=== PATIENT | female | born 1995 | race Hispanic/Latino ===

== ENCOUNTER 2018-09-22 00:27 | Emergency (ER) | payer SELFPAY ==
[2018-09-22 02:40] LABS: Absolute Lymphocytes (CBC) 2.4 K/uL (0.7-4.9); Absolute Monocytes 0.6 K/uL (0.1-1.3); Basophils % 0.7 % (0-1.3); Eosinophils % 2.6 % (0-4.4); Hematocrit 40.1 % (36.0-45.0); Lymphocytes % 33.2 % (15.3-44.8); MCH 30.8 pg (27.0-35.0); MCV 90.1 fL (80-100); MPV 8.3 fL (7.6-11.3); Monocytes % 8.9 % (3.3-12.3); RBC Red Blood Cell Count 4.44 M/uL (3.86-4.86)
[2018-09-22 02:52] LABS: BUN Blood Urea Nitrogen 9 mg/dL (7-18); Bicarbonate 26 mmol/L (21-32); Glucose Level 86 mg/dL (74-106); HCG, Quantitative 463 mIU/mL (1-3); Potassium 3.5 mmol/L (3.5-5.1); Sodium Level 139 mmol/L (136-145)
--- NOTE | 2018-09-22 05:00 | ER ---
Nurse's Notes [facility] Name: Maria Luisa Quinn Age: 23 yrs Sex: Female : 1995 Arrival Date: 09/22/2018 Time: 00:31 Bed 5 Private MD: Diagnosis: Threatened Presentation: 09/22 01:02 Presenting complaint: Patient states: "I took a test August,, jd3 2018 and it resulted positive. I started having spotting yesterday and today I am passing clots and having a lot of abdominal cramping. I also fell down on Saturday and I'm not sure if it is related or not.". Transition of care: patient was not received from another setting of care. Onset of symptoms was September 22, 2018. Risk Assessment: Do you want to hurt yourself or someone else? Patient reports no desire to harm self or others. Initial Sepsis Screen: Does the patient meet any 2 criteria? No. Patient's initial sepsis screen is negative. Does the patient have a suspected source of infection? No. Patient's initial sepsis screen is negative. Care prior to arrival: None. 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 - Social history:: Smoking status: Patient/guardian denies using tobacco. - Ebola Screening: : No symptoms or risks identified at this time. Screenin:16 Abuse screen: Denies threats or abuse. Nutritional screening: No deficits noted. jd3 Tuberculosis screening: No symptoms or risk factors identified. Fall Risk Ambulatory Aid- None/Bed Rest/Nurse Assist (0 pts). Gait- Normal/Bed Rest/Wheelchair (0 pts) Mental Status- Oriented to own ability (0 pts). Total Beavers Fall Scale indicates No Risk (0-24 pts). Assessment: 01:14 General: Appears in no apparent distress. uncomfortable, Behavior is calm, cooperative, jd3 appropriate for age. Pain: Complains of pain in abdomen Quality of pain is described as crampy. Neuro: Level of Consciousness is awake, alert, obeys commands, Oriented to person, place, time, situation. Cardiovascular: Capillary refill < 3 seconds Patient's skin is warm and dry. Respiratory: Airway is patent Respiratory effort is even, unlabored, Respiratory pattern is regular, symmetrical. GI: Abdomen is round non-distended, Bowel sounds present X 4 quads. Abd is soft and non tender X 4 quads. Reports nausea. : Reports cramping, vaginal bleeding that is with clots. EENT: No signs and/or symptoms were reported regarding the EENT system. Derm: Skin is intact, Skin is dry, Skin is normal, Skin temperature is warm. Musculoskeletal: Circulation, motion, and sensation intact. Range of motion: intact in all extremities. 03:13 Reassessment: Patient appears in no apparent distress at this time. Patient and/or aa1 family updated on plan of care and expected duration. Pain level reassessed. Patient is alert, oriented x 3, equal unlabored respirations, skin warm/dry/pink. Awaiting lab results. 04:41 Reassessment: Patient appears in no apparent distress at this time. Patient and/or aa1 family updated on plan of care and expected duration. Pain level reassessed. Patient is alert, oriented x 3, equal unlabored respirations, skin warm/dry/pink. Awaiting u/s results. 05:00 Reassessment: Patient appears in no apparent distress at this time. Patient is alert, aa1 oriented x 3, equal unlabored respirations, skin warm/dry/pink. Discharge ordered by provider but pt needs to receive RhoGAM prior to d/c; lab notified of order. Will d/c once medication received. 06:18 Reassessment: Patient appears in no apparent distress at this time. Patient is alert, aa1 oriented x 3, equal unlabored respirations, skin warm/dry/pink. Discussed d/c \\T\\ f/u instructions with pt; denies questions or concerns at this time. Vital Signs: 01:12 BP 133 / 89; Pulse 71; Resp 18 S; Temp 99.0(O); Pulse Ox 100% on R/A; Weight 98.88 kg jd3 (R); Height 5 ft. 3 in. (160.02 cm) (R); Pain 7/10; 02:15 BP 128 / 71; Pulse 54; Resp 16; Pulse Ox 98% on R/A; aa1 03:14 BP 117 / 69; Pulse 65; Resp 16; Pulse Ox 99% on R/A; aa1 04:30 BP 125 / 63; Pulse 66; Resp 16; Pulse Ox 100% on R/A; Pain 0/10; aa1 05:30 BP 132 / 70; Pulse 67; Resp 16; Pulse Ox 99% on R/A; aa1 06:18 BP 139 / 84; Pulse 64; Resp 16; Temp 98.7; Pulse Ox 99% on R/A; Pain 0/10; aa1 01:12 Body Mass Index 38.62 (98.88 kg, 160.02 cm) j ED Course: 00:31 Patient arrived in ED. es 01:02 Nicho Hernandez RN is Primary Nurse. jd3 01:08 Judd Cleary PA is PHCP. [facility] 01:08 Wolfgang Mosqueda MD is Attending Physician. [facility] 01:11 Triage completed. jd3 01:13 Arm band placed on. jd3 01:16 Patient has correct armband on for positive identification. Bed in low position. Call j light in reach. Side rails up X 1. Adult w/ patient. 02:05 Initial lab(s) drawn, by me, sent to lab. Urine collected: clean catch specimen, clear. aa1 Inserted saline lock: 22 gauge in left antecubital area, using aseptic technique. Blood collected. 04:22 Ultrasound completed. Patient tolerated well. Patient moved back from ultrasound. cy 06:20 No provider procedures requiring assistance completed. IV discontinued, intact, aa1 bleeding controlled, No redness/swelling at site. Pressure dressing applied. Administered Medications: 06:00 Drug: RhoGAM (Human) 300 mcg Route: IM; Site: left deltoid; aa1 06:18 Follow up: Response: No adverse reaction aa1 Outcome: 04:59 Discharge ordered by . rn 06:22 Discharged to home ambulatory. aa1 06:22 Condition: good 06:22 Discharge instructions given to patient, Instructed on discharge instructions, follow up and referral plans. Demonstrated understanding of instructions, follow-up care. 06:23 Patient left the ED. aa1 Signatures: Bel John RN RN aa1 Judd Cleary PA PA jmm Salyer, Edna es Nieto, Roman, MD MD rn Nicho Hernandez RN RN jd3 Heather Winkler
--- NOTE | 2018-09-22 05:00 | EDPHYS ---
Physician Documentation [facility] Name: Maria Luisa Quinn Age: 23 yrs Sex: Female : 1995 Arrival Date: 09/22/2018 Time: 00:31 Bed 5 Private MD: ED Physician Wolfgang Mosqueda HPI: 09/22 02:00 This 23 yrs old Female presents to ER via Ambulatory with complaints of jmm Vaginal Bleeding, + Preg <12wks. 02:01 The patient presents to the emergency department with vaginal bleeding. Associated jmm signs and symptoms: Pertinent positives: vaginal bleeding. This is a 23 year old female that presents to the ED with right lower pelvic pain, vaginal bleeding beginning yesterday, worsening this evening. LMP 08/12/2018. . 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 - Social history:: Smoking status: Patient/guardian denies using tobacco. - Ebola Screening: : No symptoms or risks identified at this time. ROS: 02:01 Constitutional: Negative for fever, chills, and weight loss, Eyes: Negative for injury, jmm pain, redness, and discharge, Cardiovascular: Negative for chest pain, palpitations, and edema, Respiratory: Negative for shortness of breath, cough, wheezing, and pleuritic chest pain. 02:01 : Positive for pelvic pain, vaginal bleeding. 02:01 All other systems are negative. Exam: 02:01 Constitutional: This is a well developed, well nourished patient who is awake, alert, jmm and in no acute distress. Head/Face: atraumatic. Eyes: EOMI, no conjunctival erythema appreciated ENT: Moist Mucus Membranes Neck: Trachea midline, Supple Chest/axilla: Normal chest wall appearance and motion. Cardiovascular: Regular rate and rhythm. No edema appreciated Respiratory: Normal respirations, no respiratory distress appreciated Abdomen/GI: Non distended, soft Skin: General appearance color normal MS/ Extremity: Moves all extremities, no obvious deformities appreciated, no edema noted to the lower extremities Neuro: Awake and alert, normal gait Psych: Behavior is normal, Mood is normal, Patient is cooperative and pleasant Vital Signs: 01:12 BP 133 / 89; Pulse 71; Resp 18 S; Temp 99.0(O); Pulse Ox 100% on R/A; Weight 98.88 kg jd3 (R); Height 5 ft. 3 in. (160.02 cm) (R); Pain 7/10; 02:15 BP 128 / 71; Pulse 54; Resp 16; Pulse Ox 98% on R/A; aa1 03:14 BP 117 / 69; Pulse 65; Resp 16; Pulse Ox 99% on R/A; aa1 04:30 BP 125 / 63; Pulse 66; Resp 16; Pulse Ox 100% on R/A; Pain 0/10; aa1 05:30 BP 132 / 70; Pulse 67; Resp 16; Pulse Ox 99% on R/A; aa1 06:18 BP 139 / 84; Pulse 64; Resp 16; Temp 98.7; Pulse Ox 99% on R/A; Pain 0/10; aa1 01:12 Body Mass Index 38.62 (98.88 kg, 160.02 cm) jd3 MDM: 01:18 Patient medically screened. [facility] 02:36 Data reviewed: vital signs, nurses notes. Counseling: I had a detailed discussion with hammad the patient and/or guardian regarding:. Transition of care: After a detail discussion of the patient's case, care is transferred to Wolfgang Mosqueda MD. 04:58 ED course: Pt with beta of 400, nothing in adnexa, endometrium appears normal as well, rn no sac, pt B-, ordered RhoGAM, also patient states [facility] of this . . 09/22 01:18 Order name: Abo/rh Typing [facility] 09/22 01:18 Order name: Basic Metabolic Panel [facility] 09/22 01:18 Order name: CBC with Diff [facility] 09/22 01:53 Order name: HCG-Quantitative [facility] 09/22 02:03 Order name: Urine Dipstick--Ancillary (enter results) [facility] 09/22 02:03 Order name: Urine --Ancillary (enter results) [facility] 09/22 02:52 Order name: Basic Metabolic Panel; Complete Time: 03:12 [facility] 09/22 02:52 Order name: HCG, Quantitative; Complete Time: 03:12 [facility] 09/22 02:56 Order name: CBC with Automated Diff; Complete Time: 03:12 [facility] 09/22 04:53 Order name: ABO/RH typing [facility] 09/22 05:55 Order name: Rh Typing [facility] 09/22 05:55 Order name: Antibody Screen [facility] 09/22 05:55 Order name: Fetalscreen [facility] 09/22 05:55 Order name: Cord Rh type [facility] 09/22 01:18 Order name: Urine Test (obtain specimen); Complete Time: 02:02 [facility] 09/22 01:18 Order name: IV Saline Lock; Complete Time: 02:46 [facility] 09/22 01:18 Order name: Labs collected and sent; Complete Time: 02:46 [facility] 09/22 01:18 Order name: NPO; Complete Time: 01:55 [facility] 09/22 01:18 Order name: Urine Dipstick-Ancillary (obtain specimen); Complete Time: 02:02 [facility] 09/22 03:59 Order name: Transvaginal OB US rn Administered Medications: 06:00 Drug: RhoGAM (Human) 300 mcg Route: IM; Site: left deltoid; aa1 06:18 Follow up: Response: No adverse reaction aa1 Disposition: 06:27 Co-signature as Attending Physician, Wolfgang Mosqueda MD. rn Disposition: 09/22/18 04:59 Discharged to Home. Impression: Threatened . - Condition is Stable. - Discharge Instructions: Threatened Miscarriage, Vaginal Bleeding During , First Trimester. - Medication Reconciliation Form, Thank You Letter, Antibiotic Education, Prescription Opioid Use form. - Follow up: Private Physician; When: As needed; Reason: Recheck today's complaints, Re-evaluation by your physician. - Problem is new. - Symptoms have improved. Signatures: Dispatcher [employer] [facility] Bel John RN RN aa1 Judd Cleary PA PA jmm Nieto, Roman, MD MD rn Davies, Jonathon, RN RN jd3 Corrections: (The following items were deleted from the chart) 06:23 04:59 09/22/2018 04:59 Discharged to Home. Impression: Threatened . Condition aa1 is Stable. Forms are Medication Reconciliation Form, Thank You Letter, Antibiotic Education, Prescription Opioid Use. Follow up: Private Physician; When: As needed; Reason: Recheck today's complaints, Re-evaluation by your physician. Problem is new. Symptoms have improved. rn
[2018-09-22 08:45] LABS: Urine Blood 3+ (NEG); Urine Glucose NEGATIVE (NEG); Urine Protein NEGATIVE (NEG); Urine pH 5.5 (5.0-7.0)
--- NOTE | 2018-09-22 08:52 | RAD REPORT ---
EXAM DESCRIPTION: US - Transvaginal OB - 09/22/2018 6:40 am CLINICAL HISTORY: with abdominal pain and vaginal bleeding COMPARISON: None. FINDINGS: The uterus 7 x 4 x 4 centimeters. The endometrial stripe measures 7 millimeters. A gestat ional sac is not seen. A fibroid is not visualized. Ovaries are normal in size and echotexture. No significant free fluid is seen. IMPRESSION: These findings may indicate an early IUP in which the gestational sac is not yet seen. C omplete and ectopic can also have this appearance. This all should be correlated c linically and with serial beta HCG levels. Follow up ultrasound in 1 week recommended
== END 2018-09-22 06:23 | disposition home or self-care (01) ==
LOC: ER 00:27
DX: O20.0 Threatened abortion (principal); Z3A.00 Weeks of gestation of pregnancy not specified
CPT/HCPCS: 36415; 76813; 76817; 80048; 81003; 81025; 84702; 85025; 86850; 86900; 86901; 96372; 99284; J2790

== ENCOUNTER 2018-09-24 10:26 | Emergency (ER) | payer SELFPAY ==
--- NOTE | 2018-09-24 12:30 | ER ---
Nurse's Notes [facility] Name: Maria Luisa Quinn Age: 23 yrs Sex: Female : 1995 Arrival Date: 09/24/2018 Time: 10:30 Bed 18 Private MD: Diagnosis: Threatened Presentation: 09/24 10:31 Presenting complaint: Patient states: they told me it was too early to tell if i was tw2 having a miscarriage and to come back in 48 hours to check my levels. Transition of care: patient was not received from another setting of care. Onset of symptoms was September 24, 2018. Risk Assessment: Do you want to hurt yourself or someone else? Patient reports no desire to harm self or others. Initial Sepsis Screen: Does the patient meet any 2 criteria? No. Patient's initial sepsis screen is negative. Does the patient have a suspected source of infection? No. Patient's initial sepsis screen is negative. Care prior to arrival: None. 10:31 Method Of Arrival: Ambulatory tw2 10:31 Acuity: HOLLY 3 tw2 10:33 Presenting complaint: Patient states: "no its more like like a period, no clots, a tw2 medium flow. 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 - Social history:: Smoking status: . - Ebola Screening: : Patient denies travel to an Ebola-affected area in the 21 days before illness onset. Screenin:24 Abuse screen: Denies threats or abuse. Denies injuries from another. Nutritional aj screening: No deficits noted. Tuberculosis screening: No symptoms or risk factors identified. Fall Risk None identified. Assessment: 11:24 General: Appears in no apparent distress. comfortable, Behavior is calm, cooperative, aj appropriate for age. Pain: Denies pain. Neuro: Level of Consciousness is awake, alert, obeys commands, Oriented to person, place, time, situation, Appropriate for age. Respiratory: Airway is patent Respiratory effort is even, unlabored, Respiratory pattern is regular, symmetrical. Derm: Skin is intact, is healthy with good turgor, Skin is pink, warm \\T\\ dry. normal. 12:38 Reassessment: Patient appears in no apparent distress at this time. No changes from aj previously documented assessment. Patient and/or family updated on plan of care and expected duration. Pain level reassessed. Patient is alert, oriented x 3, equal unlabored respirations, skin warm/dry/pink. Patient denies pain at this time. Vital Signs: 10:32 BP 149 / 97; Pulse 71; Resp 17; Temp 97.4(TE); Pulse Ox 99% on R/A; Pain 6/10; tw2 12:39 BP 139 / 92; Pulse 76; Resp 19; Temp 98.1; Pulse Ox 99% on R/A; aj ED Course: 10:30 Patient arrived in ED. sb2 10:32 Triage completed. tw2 10:32 Arm band placed on. tw2 10:35 Judd Cleary PA is PHCP. jm 10:35 Wolfgang Mosqueda MD is Attending Physician. [facility] 10:39 Lisha Araujo, RN is Primary Nurse. aj 11:24 Patient has correct armband on for positive identification. Placed in gown. aj 11:24 Initial lab(s) drawn, by id, sent to lab. aj 12:39 No provider procedures requiring assistance completed. Patient did not have IV access aj during this emergency room visit. Administered Medications: No medications were administered Outcome: 12:29 Discharge ordered by . jmm 12:39 Discharged to home ambulatory. aj 12:39 Condition: good 12:39 Discharge instructions given to patient, Instructed on discharge instructions, follow up and referral plans. Demonstrated understanding of instructions, follow-up care. 12:40 Patient left the ED. aj Signatures: Lisha Araujo, RN RN Judd Damon PA PA jmm Wise, Tara, RN RN tw2 Lesly Leong sb2
--- NOTE | 2018-09-24 12:30 | EDPHYS ---
Physician Documentation [facility] Name: Maria Luisa Quinn Age: 23 yrs Sex: Female : 1995 Arrival Date: 09/24/2018 Time: 10:30 Bed 18 Private MD: ED Physician Wolfgang Mosqueda HPI: 09/24 10:47 This 23 yrs old Female presents to ER via Ambulatory with complaints of repeat jmm lab test. 10:47 The patient presents with vaginal bleeding that is moderate. Onset: The jmm symptoms/episode began/occurred gradually, 3 day(s) ago. Associated signs and symptoms: Pertinent negatives: fever, vomiting. This is a 23 year old female that presents to the ED with complaints of vaginal bleeding. Bleeding initially began 3 days ago. Patient was evaluated in the ED and advised to repeat quant hcg in 48 hours due to low levels. . 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 - Social history:: Smoking status: . - Ebola Screening: : Patient denies travel to an Ebola-affected area in the 21 days before illness onset. ROS: 10:47 Positive for vaginal bleeding. jmm 10:47 Constitutional: Negative for fever, chills, and weight loss, Eyes: Negative for injury, pain, redness, and discharge, ENT: Negative for injury, pain, and discharge, Cardiovascular: Negative for chest pain, palpitations, and edema, Abdomen/GI: Negative for abdominal pain, nausea, vomiting, diarrhea, and constipation. 10:47 All other systems are negative. Exam: 10:47 Constitutional: This is a well developed, well nourished patient who is awake, alert, jmm and in no acute distress. Head/Face: atraumatic. Eyes: EOMI, no conjunctival erythema appreciated ENT: Moist Mucus Membranes Neck: Trachea midline, Supple Chest/axilla: Normal chest wall appearance and motion. Cardiovascular: Regular rate and rhythm. No edema appreciated Respiratory: Normal respirations, no respiratory distress appreciated Abdomen/GI: Non distended, soft Back: Normal ROM Skin: General appearance color normal MS/ Extremity: Moves all extremities, no obvious deformities appreciated, no edema noted to the lower extremities Neuro: Awake and alert, normal gait Psych: Behavior is normal, Mood is normal, Patient is cooperative and pleasant Vital Signs: 10:32 BP 149 / 97; Pulse 71; Resp 17; Temp 97.4(TE); Pulse Ox 99% on R/A; Pain 6/10; tw2 12:39 BP 139 / 92; Pulse 76; Resp 19; Temp 98.1; Pulse Ox 99% on R/A; aj MDM: 10:44 Patient medically screened. [facility] 12:16 Data reviewed: vital signs, nurses notes. Counseling: I had a detailed discussion with [facility] the patient and/or guardian regarding: the historical points, exam findings, and any diagnostic results supporting the discharge/admit diagnosis, the need for outpatient follow up, to return to the emergency department if symptoms worsen or persist or if there are any questions or concerns that arise at home. Response to treatment:. ED course: Patient is alert and non toxic in appearance in the ED. Patient is advised to follow up with OB for further evaluation and given return precautions. Patient understood and agrees with the plan of care. . 09/24 10:36 Order name: HCG-Quantitative [facility] 09/24 12:09 Order name: HCG, Quantitative; Complete Time: 12:15 EDMS Administered Medications: No medications were administered Disposition: 14:45 Co-signature as Attending Physician, Wolfgang Mosqueda MD. rn Disposition: 09/24/18 12:29 Discharged to Home. Impression: Threatened . - Condition is Stable. - Discharge Instructions: Miscarriage. - Medication Reconciliation Form, Thank You Letter, Antibiotic Education, Prescription Opioid Use form. - Follow up: Private Physician; When: 1 - 2 days; Reason: Recheck today's complaints, Continuance of care, Re-evaluation by your physician. Signatures: Dispatcher [employer] Lisha Haddad RN RN aj Mickail, Joel, PA PA jmm Nieto, Roman, MD MD rn Wise, Tara, RN RN tw2 Corrections: (The following items were deleted from the chart) 12:40 12:29 09/24/2018 12:29 Discharged to Home. Impression: Threatened . Condition aj is Stable. Forms are Medication Reconciliation Form, Thank You Letter, Antibiotic Education, Prescription Opioid Use. Follow up: Private Physician; When: 1 - 2 days; Reason: Recheck today's complaints, Continuance of care, Re-evaluation by your physician. hammad
== END 2018-09-24 12:40 | disposition home or self-care (01) ==
LOC: ER 10:26
DX: O20.0 Threatened abortion (principal); Z3A.00 Weeks of gestation of pregnancy not specified
CPT/HCPCS: 36415; 84702; 99283

== ENCOUNTER 2019-06-27 09:24 | Emergency (ER) | payer SELFPAY ==
--- OUTSIDE RECORDS SUMMARY | 2019-06-27 09:26 | XMS REPORT ---
:1995 [facility] Address [address] [place] [address] [address] [place] [address] Care Team Providers Name Role Phone Unavailable Unavailable Unavailable Problems This patient has no known problems. Allergies, Adverse Reactions, Alerts This patient has no known allergies or adverse reactions. Medications This patient has no known medications.
[2019-06-27] MEDS ORDERED: KETOROLAC 30 MG/ML INJ ONE (10:49)
[2019-06-27 10:50] LABS: Urine Blood TRACE (NEG); Urine Glucose NEGATIVE (NEG); Urine Protein NEGATIVE (NEG)
--- NOTE | 2019-06-27 11:09 | RAD REPORT ---
EXAM DESCRIPTION: RAD - Lumbar Spine 3 Views - 06/27/2019 10:51 am CLINICAL HISTORY: Fall, back pain COMPARISON: None. FINDINGS: A three-view lumbar spine examination was performed. Lumbar bodies are normal in height an d alignment. No fracture or acute bony process seen. No disc space narrowing. Coned-down lateral view shows no evidence for sacrum or coccyx displacement. No pars defects identified. IMPRESSION: Negative Lumbar Spine examination.
--- NOTE | 2019-06-27 11:37 | ER ---
Nurse's Notes [facility] Name: Maria Luisa Quinn Age: 23 yrs Sex: Female : 1995 Arrival Date: 06/27/2019 Time: 09:26 Bed 23 Private MD: Diagnosis: Fall on same level, unspecified;Contusion of coccyx Presentation: 06/27 09:36 Presenting complaint: Patient states: "I stepped backwards and I fell right on my bb tailbone and now it hurts even when I hit a speed bump.". Transition of care: patient was not received from another setting of care. Onset of symptoms was June 26, 2019. Risk Assessment: Do you want to hurt yourself or someone else? Patient reports no desire to harm self or others. Initial Sepsis Screen: Does the patient meet any 2 criteria? No. Patient's initial sepsis screen is negative. Does the patient have a suspected source of infection? No. Patient's initial sepsis screen is negative. Care prior to arrival: None. 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 - Social history:: Smoking status: Patient/guardian denies using tobacco. - Ebola Screening: : Patient denies exposure to infectious person Patient denies travel to an Ebola-affected area in the 21 days before illness onset. Screenin:35 Abuse screen: Denies threats or abuse. Denies injuries from another. Nutritional ss screening: No deficits noted. Tuberculosis screening: Never had TB. Fall Risk Fall in past 12 months (25 points). No secondary diagnosis (0 pts). No IV (0 pts). Ambulatory Aid- None/Bed Rest/Nurse Assist (0 pts). Gait- Normal/Bed Rest/Wheelchair (0 pts) Mental Status- Oriented to own ability (0 pts). Assessment: 09:35 General: Appears uncomfortable, Behavior is calm, cooperative. Pain: Complains of pain ss in sacrum Pain currently is 7 out of 10 on a pain scale. Quality of pain is described as aching, tender, Is continuous, Aggravated by repositioning, sitting. Neuro: Level of Consciousness is awake, alert, obeys commands, Oriented to person, place, time, situation. Cardiovascular: Capillary refill < 3 seconds is brisk Patient's skin is warm and dry. Respiratory: Airway is patent Respiratory effort is even, unlabored, Respiratory pattern is regular, symmetrical. GI: Patient currently denies diarrhea, nausea, vomiting. EENT: Nares are clear Oral mucosa is moist. Derm: Skin is intact, is healthy with good turgor, Skin is pink, warm \\T\\ dry. normal. Musculoskeletal: Circulation, motion, and sensation intact. Range of motion: intact in all extremities. 10:48 Reassessment: Patient is XRAY at this time. ss Vital Signs: 09:38 BP 126 / 76; Pulse 74; Resp 16; Temp 97.9; Pulse Ox 98% on R/A; Weight 97.52 kg; Height bb 5 ft. 3 in. (160.02 cm); Pain 8/10; 09:38 Body Mass Index 38.09 (97.52 kg, 160.02 cm) bb ED Course: 09:26 Patient arrived in ED. as 09:31 Keisha Escoto FNP-C is [facility]. snw 09:31 Wolfgang Mosqueda MD is Attending Physician. snw 09:35 Patient has correct armband on for positive identification. Bed in low position. Call ss light in reach. 09:37 Triage completed. bb 09:38 Arm band placed on left wrist. bb 09:58 Mally Navarro, LINH is Primary Nurse. ss 10:48 Lumbar Spine (3 Views) XRAY In Process Unspecified. EDMS 11:50 No provider procedures requiring assistance completed. Patient did not have IV access ss during this emergency room visit. Administered Medications: 10:58 Drug: TORadol 30 mg Route: IM; Site: left gluteus; ss 11:53 Follow up: Response: No adverse reaction; Pain is decreased ss Outcome: 11:37 Discharge ordered by . snw 11:50 Discharged to home ambulatory. ss 11:50 Condition: good 11:50 Discharge instructions given to patient, Instructed on discharge instructions, follow up and referral plans. medication usage, Demonstrated understanding of instructions, follow-up care, medications, Prescriptions given X 1. 11:53 Patient left the ED. ss Signatures: Dispatcher [employer] EDMS Keisha Escoto, ARCHANA-C IMPERSONATOR CHARACTER-Yesenia Plascencia Brenda, RN RN bb Mally Navarro RN RN ss
--- NOTE | 2019-06-27 11:38 | EDPHYS ---
Physician Documentation [facility] Name: Maria Luisa Quinn Age: 23 yrs Sex: Female : 1995 Arrival Date: 06/27/2019 Time: 09:26 Bed 23 Private MD: ED Physician Wolfgang Mosqueda HPI: 06/27 09:59 This 23 yrs old Female presents to ER via Ambulatory with complaints of Low snw Back Pain. 09:59 The patient presents with pain that is acute. The symptoms are located in the coccyx snw area. The pain does not radiate. The problem was sustained during a fall, while standing. Onset: The symptoms/episode began/occurred suddenly, last night. Associated signs and symptoms: The patient has no apparent associated signs or symptoms. Severity of symptoms: At their worst the symptoms were moderate, severe. The patient has not experienced similar symptoms in the past. The patient has not recently seen a physician. 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 - Social history:: Smoking status: Patient/guardian denies using tobacco. - Ebola Screening: : Patient denies exposure to infectious person Patient denies travel to an Ebola-affected area in the 21 days before illness onset. ROS: 09:57 Constitutional: Negative for fever, chills, and weight loss, Eyes: Negative for injury, snw pain, redness, and discharge, ENT: Negative for injury, pain, and discharge, Neck: Negative for injury, pain, and swelling, Cardiovascular: Negative for chest pain, palpitations, and edema, Respiratory: Negative for shortness of breath, cough, wheezing, and pleuritic chest pain, Abdomen/GI: Negative for abdominal pain, nausea, vomiting, diarrhea, and constipation, : Negative for injury, bleeding, discharge, and swelling, MS/Extremity: Negative for injury and deformity, Skin: Negative for injury, rash, and discoloration, Neuro: Negative for headache, weakness, numbness, tingling, and seizure. 09:57 Back: Positive for injury or acute deformity, pain at rest, pain with movement, of the sacrum. Exam: 09:57 Constitutional: This is a well developed, well nourished patient who is awake, alert, snw and in no acute distress. Head/Face: Normocephalic, atraumatic. Eyes: Pupils equal round and reactive to light, extra-ocular motions intact. Lids and lashes normal. Conjunctiva and sclera are non-icteric and not injected. Cornea within normal limits. Periorbital areas with no swelling, redness, or edema. ENT: Nares patent. No nasal discharge, no septal abnormalities noted. Tympanic membranes are normal and external auditory canals are clear. Oropharynx with no redness, swelling, or masses, exudates, or evidence of obstruction, uvula midline. Mucous membranes moist. Neck: Trachea midline, no thyromegaly or masses palpated, and no cervical lymphadenopathy. Supple, full range of motion without nuchal rigidity, or vertebral point tenderness. No Meningismus. Chest/axilla: Normal chest wall appearance and motion. Nontender with no deformity. No lesions are appreciated. Cardiovascular: Regular rate and rhythm with a normal S1 and S2. No gallops, murmurs, or rubs. Normal PMI, no JVD. No pulse deficits. Respiratory: Lungs have equal breath sounds bilaterally, clear to auscultation and percussion. No rales, rhonchi or wheezes noted. No increased work of breathing, no retractions or nasal flaring. Abdomen/GI: Soft, non-tender, with normal bowel sounds. No distension or tympany. No guarding or rebound. No evidence of tenderness throughout. Back: No spinal tenderness. No costovertebral tenderness. Full range of motion. Tender coccyx, difficulty sitting Skin: Warm, dry with normal turgor. Normal color with no rashes, no lesions, and no evidence of cellulitis. MS/ Extremity: Pulses equal, no cyanosis. Neurovascular intact. Full, normal range of motion. Neuro: Awake and alert, GCS 15, oriented to person, place, time, and situation. Cranial nerves II-XII grossly intact. Motor strength 5/5 in all extremities. Sensory grossly intact. Cerebellar exam normal. Normal gait. Vital Signs: 09:38 BP 126 / 76; Pulse 74; Resp 16; Temp 97.9; Pulse Ox 98% on R/A; Weight 97.52 kg; Height bb 5 ft. 3 in. (160.02 cm); Pain 05/30; 09:38 Body Mass Index 38.09 (97.52 kg, 160.02 cm) bb MDM: 09:40 Patient medically screened. snw 11:41 Data reviewed: vital signs, nurses notes. Data interpreted: Pulse oximetry: on room air snw is 98 %. Interpretation: normal. Counseling: I had a detailed discussion with the patient and/or guardian regarding: the historical points, exam findings, and any diagnostic results supporting the discharge/admit diagnosis, lab results, radiology results, the need for outpatient follow up, for definitive care, to return to the emergency department if symptoms worsen or persist or if there are any questions or concerns that arise at home. Special discussion: Based on the history and exam findings, there is no indication for further emergent testing or inpatient evaluation. I discussed with the patient/guardian the need to see the primary care provider for further evaluation of the symptoms. 06/27 10:27 Order name: Urine --Ancillary (enter results); Complete Time: 10:56 ss 06/27 09:31 Order name: Urine Test (obtain specimen); Complete Time: 10:27 snw 06/27 10:28 Order name: Urine Dipstick--Ancillary (enter results); Complete Time: 10:56 ss 06/27 10:34 Order name: Lumbar Spine (3 Views) XRAY; Complete Time: 11:35 snw 06/27 09:31 Order name: Urine Dipstick-Ancillary (obtain specimen); Complete Time: 10:27 snw Administered Medications: 10:58 Drug: TORadol 30 mg Route: IM; Site: left gluteus; ss 11:53 Follow up: Response: No adverse reaction; Pain is decreased ss Disposition: 17:52 Co-signature as Attending Physician, Wolfgang Mosqueda MD. rn Disposition: 06/27/19 11:37 Discharged to Home. Impression: Fall on same level, unspecified, Contusion of coccyx. - Condition is Stable. - Discharge Instructions: Fall Prevention in the Home, Tailbone Injury. - Prescriptions for Ultram 50 mg Oral Tablet - take 1 tablet by ORAL route every 6 hours As needed; 12 tablet. - Medication Reconciliation Form, Thank You Letter, Antibiotic Education, Prescription Opioid Use form. - Follow up: Private Physician; When: 2 - 3 days; Reason: Recheck today's complaints, Continuance of care, Re-evaluation by your physician. Follow up: Emergency Department; When: As needed; Reason: Worsening of condition. Signatures: Dispatcher [employer] EDMS Tigist Keisha, ARCHANA-C OBJECTS CONSERVATOR-Csnw Lizbeth Lagos RN RN Wolfgang Oropeza MD MD rn Smirch, Shelby, RN RN ss Corrections: (The following items were deleted from the chart) 11:53 11:37 06/27/2019 11:37 Discharged to Home. Impression: Fall on same level, unspecified; ss Contusion of coccyx. Condition is Stable. Forms are Medication Reconciliation Form, Thank You Letter, Antibiotic Education, Prescription Opioid Use. Follow up: Private Physician; When: 2 - 3 days; Reason: Recheck today's complaints, Continuance of care, Re-evaluation by your physician. Follow up: Emergency Department; When: As needed; Reason: Worsening of condition. snw
[2019-06-27 11:59] VITALS: BP 126/76; TEMP 97.9; O2SAT 98
== END 2019-06-27 11:53 | disposition home or self-care (01) ==
LOC: ER 09:24
DX: S30.0XXA Contusion of lower back and pelvis, initial encounter (principal); W18.30XA Fall on same level, unspecified, initial encounter; Y93.9 Activity, unspecified; Y92.9 Unspecified place or not applicable
CPT/HCPCS: 72100; 81003; 81025; 96372; 99283

== ENCOUNTER 2022-01-03 12:57 | Emergency (ER) | payer SELFPAY ==
--- OUTSIDE RECORDS SUMMARY | 2022-01-03 13:01 | XMS REPORT | Continuity of Care Document ---
:1995 Author Organization [facility] Address [address] [place] [address] Care Team Providers Name Role Phone ISAACCULLEN Attending Clinician Unavailable Doctor Unassigned, Name Attending Clinician Unavailable CELENA, Steven Attending Clinician Unavailable Celena BRIGHT, Steven Attending Clinician Nurse, Women's Health Attending Clinician Unavailable Dar BRIGHT, Cam Attending Clinician Payers Payer Name Policy Type Policy Number Effective Date Expiration Date S shabbir ENTRUST [id number] 2019 00:00:00 Problems Condition Condition Condition Status Onset Resolution Last Treating Co mments Source Name Details Category Date Date Treatment Clinician Date Obesity Obesity Disease Active 2019- Univers (BMI (BMI 6-07 ity of 30-39.9) 30-39.9) 00:00: [address] Allergies, Adverse Reactions, Alerts Allergy Allergy Status Severity Reaction(s) Onset Inactive Treating Comm ents Source Name Type Date Date Clinician NO KNOWN Drug Active Univers ALLERGIE Class [facility] [place] [facility] Social History Social Habit Start Date Stop Date Quantity Comments Source History [facility] University o f Alcohol Std [place] [facility] History [facility] University o f Alcohol Binge [place] [facility] Sex Assigned At [facility] [place] [facility] [place] Exposure to Not sure University of SARS-CoV-2 [place] [facility] (event) [facility] Alcohol intake 2020-01-25 2020-01-25 Current drinker Unive rsity of 00:00:00 00:00:00 of alcohol [place] [facility] (finding) Branch Tobacco use and 2020-01-25 2020-01-25 Never used Universit y of exposure 00:00:00 00:00:00 [place] [facility] History SDOH 2019-03-27 2019-03-27 2 University o f Alcohol Frequency 00:00:00 00:00:00 [facility] edical Branch Smoking Status Start Date Stop Date Source Never smoker [facility] Medications Ordered Filled Start Stop Current Ordering Indication Dosage Frequency Signature Comments Components Source Medication Medication Date Date Medication? Clinician (SIG) Name Name medroxyPROG 2020-0 2020- No 150mg Univ ers ESTERone 03-29 ity of (DEPO-PROVE 14:45: 13:36 [place] RA) 00 :00 Medical injection Branch 150 mg medroxyPROG 2020-0 2020- No 150mg 150 mg, U nivers ESTERone 03-29 Intramuscu ity of (DEPO-PROVE 14:45: 13:36 lar, ONCE, [place] RA) 00 :00 1 dose, Medical injection 03/29/20 Bran ch 150 mg at 0945, Routine medroxyPROG 2020-0 2020- No 150mg Univ ers ESTERone 12-28-10 ity of (DEPO-PROVE 17:00: 15:51 [place] RA) 00 :00 Medical injection Branch 150 mg medroxyPROG 2020-0 2020- No 150mg 150 mg, U nivers ESTERone 12-28-10 Intramuscu ity of (DEPO-PROVE 17:00: 15:51 lar, ONCE, [place] RA) 00 :00 1 dose, Medical injection Tue Branch 150 mg 12/29/19 at 1200, Routine QSYMIA 2020-0 Yes [id number] 1{capsu Take 1 U nivers 7.5-46 mg 1-09 le} capsule by ity of per capsule 00:00: mouth 00 daily. Medical Branch QSYMIA 2020-0 Yes [id number] 1{capsu Take 1 U nivers 7.5-46 mg 1-09 le} capsule by ity of per capsule 00:00: mouth [place] 00 daily. Medical Branch QSYMIA 2020-0 Yes [id number] 1{capsu Take 1 U nivers 7.5-46 mg 1-09 le} capsule by ity of per capsule 00:00: mouth [place] 00 daily. Medical Branch QSYMIA 2020-0 Yes [id number] 1{capsu Take 1 U nivers 7.5-46 mg 1-09 le} capsule by ity of per capsule 00:00: mouth [place] 00 daily. Medical Branch QSYMIA 2020-0 Yes [id number] 1{capsu Take 1 U nivers 7.5-46 mg 1-09 le} capsule by ity of per capsule 00:00: mouth [place] 00 daily. Medical Branch QSYMIA 2019-0 Yes [id number] 1{capsu Take 1 U nivers 7.5-46 mg 1-09 le} capsule by ity of per capsule 00:00: mouth [place] 00 daily. Medical Branch QSYMIA 2019-0 Yes [id number] 1{capsu Take 1 U nivers 7.5-46 mg 1-09 le} capsule by ity of per capsule 00:00: mouth [place] 00 daily. Medical Branch QSYMIA 2019-0 Yes [id number] 1{capsu Take 1 U nivers 7.5-46 mg 1-09 le} capsule by ity of per capsule 00:00: mouth [place] 00 daily. Medical Branch QSYMIA 2019-0 Yes [id number] 1{capsu Take 1 U nivers 7.5-46 mg 1-09 le} capsule by ity of per capsule 00:00: mouth [place] 00 daily. Medical Branch QSYMIA 2019-0 Yes [id number] 1{capsu Take 1 U nivers 7.5-46 mg 1-09 le} capsule by ity of per capsule 00:00: mouth [place] 00 daily. Medical Branch QSYMIA 2019-0 2020- No [id number] 1{capsu Take 1 Univers 3.75-23 mg 10-2924 le} capsule by it y of per capsule 00:00: 05:59 [place] 00 :[place] daily for Medical 14 days. Branch QSYMIA 2019-0 2020- No [id number] 1{capsu Take 1 Univers 3.75-23 mg 10-2924 le} capsule by it y of per capsule 00:00: 05:59 [place] 00 :[place] daily for Medical 14 days. Branch QSYMIA 2019-0 2020- No [id number] 1{capsu Take 1 Univers 3.75-23 mg 10-26-09 le} capsule by it y of per capsule 00:00: 00:[place] :[place] daily. Medical Branch medroxyPROG 2018- 2019- No 150mg Univ ers ESTERone 06-29 ity of (DEPO-PROVE 22:45: 21:35 [place] RA) 00 :00 Medical injection Branch 150 mg medroxyPROG 2019- No 150mg 150 mg, U nivers ESTERone 06-29 Intramuscu ity of (DEPO-PROVE 22:45: 21:35 lar, ONCE, [place] RA) 00 :00 1 dose, Medical injection 06/29/19 Bran ch 150 mg at 1745, Routine medroxyPROG 2018- No 150mg Univ ers ESTERone 06-29 ity of (DEPO-PROVE 22:45: 21:35 [place] RA) 00 :00 Medical injection Branch 150 mg medroxyPROG 2018- No 150mg 150 mg, U nivers ESTERone 06-29 Intramuscu ity of (DEPO-PROVE 22:45: 21:35 lar, ONCE, [place] RA) 00 :00 1 dose, Medical injection 06/29/19 Bran ch 150 mg at 1745, Routine XULANE Yes APPLY 1 Univers 150-35 4-05 PATCH TO ity of mcg/24 hr 00:00: SKIN [place] patch 00 DIRECTED Medical ONCE EVERY Branch WEEK XULANE Yes APPLY 1 Univers 150-35 4-05 PATCH TO ity of mcg/24 hr 00:00: SKIN [place] patch 00 DIRECTED Medical ONCE EVERY Branch WEEK naproxen 2016- Yes 500mg Take 2 Univer s 250 mg 1-22 tablets by ity of tablet 00:00: mouth 2 00 (two) Medical times Branch daily with meals. traMADOL 2017- Yes 50mg Take 1 Univers (ULTRAM) 50 1-22 tablet by ity of mg tablet 00:00: mouth [place] 00 every 6 Medical (six) Branch hours as needed for Pain (scale 4-6). Gonzalez Rich PA-C / Kenneth Baez MD TRENA# [id number] DPS# [id number] x Lic.# [id number] NPI# [id number] cyclobenzap 2017-0 Yes 5mg Take 1 Univ ers rine 5 mg 1-22 tablet by ity o f tablet 00:00: mouth 3 00 (three) Medical times Branch daily. naproxen 2017-0 Yes 500mg Take 2 Univer s 250 mg 1-22 tablets by ity of tablet 00:00: mouth 2 [place] 00 (two) Medical times Branch daily with meals. traMADOL 2017-0 Yes 50mg Take 1 Univers (ULTRAM) 50 1-22 tablet by ity of mg tablet 00:00: mouth [place] 00 every 6 Medical (six) Branch hours as needed for Pain (scale 4-6). Gonzalez Rich PA-C / Kenneth Baez MD [facility]# [id number] DPS# [id number] x Lic.# [id number] [facility]# [id number] cyclobenzap 2017-0 Yes 5mg Take 1 Univ ers rine 5 mg 1-22 tablet by ity o f tablet 00:00: mouth 3 [place] 00 (three) Medical times Branch daily. naproxen 2016-0 Yes 550mg Take 1 Univer s sodium 6-08 tablet by ity of (ANAPROX) 00:00: mouth 2 [place] 550 mg 00 (two) Medical tablet times Branch daily with meals. naproxen 2016-0 Yes 550mg Take 1 Univer s sodium 6-08 tablet by ity of (ANAPROX) 00:00: mouth 2 [place] 550 mg 00 (two) Medical tablet times Branch daily with meals. Vital Signs Vital Name Observation Time Observation Value Comments Source Systolic blood 2020-03-29 13:29:00 116 mm[Hg] [facility] 2020-03-29 13:29:00 79 [facility] 2020-03-29 13:29:00 58 /min [facility] Body temperature 2020-03-29 13:29:00 36.78 Lucy [facility] Respiratory rate 2020-03-29 13:29:00 18 /min [facility] Body height 2020-03-29 13:29:00 157.5 cm [facility] Body weight 2020-03-29 13:29:00 88.905 kg [facility] BMI 2020-03-29 13:29:00 35.85 kg/m2 [facility] Systolic blood 2019-12-29 15:50:00 131 mm[Hg] [facility] Diastolic blood 2019-12-29 15:50:00 86 mm[facility]Hg] [facility] 2019-12-29 15:50:00 63 /min Universi ty of [facility] Body temperature 2019-12-29 15:50:00 36.78 Lucy Univ ersity of [facility] Respiratory rate 2019-12-29 15:50:00 18 /min Univ ersity of [facility] Body weight 2019-12-29 15:50:00 95.709 kg Universi ty [facility] BMI 2019-12-29 15:50:00 37.38 kg/m2 Universi ty [facility] Systolic blood 2019-06-29 21:38:00 125 mm[Hg] Univer sity of pressure [facility] Diastolic blood 2019-06-29 21:38:00 74 mm[Hg] Unive rsity of pressure [facility] Systolic blood 2019-06-29 21:25:00 141 mm[Hg] Univer sity of pressure [facility] Diastolic blood 2019-06-29 21:25:00 91 mm[Hg] Unive rsity of pressure [facility] Heart rate 2019-06-29 21:25:00 68 /min Universi ty [facility] Body temperature 2019-06-29 21:25:00 36.78 Lucy Univ ersity of [facility] Respiratory rate 2019-06-29 21:25:00 18 /[facility] 2019-06-29 21:25:00 160 cm Universi ty [facility] Body weight 2019-06-29 21:25:00 100.699 kg Universi ty [facility] BMI 2019-06-29 21:25:00 39.33 kg/m2 [facility] Procedures Procedure Date / Time Performing Clinician Source Performed AUTHORIZATION FOR RELEASE 2020-09-11 06:01:00 Doctor Unassigned, [facility] [place] [facility] ASSIGNMENT OF BENEFITS 2020-03-29 13:11:23 Doctor Vanessa [facility] Name Medical Branch MEDICATION CORRESPONDENCE 2019-10-27 06:01:00 Doctor Vanessa, [facility] [place] [facility] Encounters Start End Encounter Admission Attending Care Care Encounter Source Date/Time Date/Time Type Type Clinicians Facility Department ID 2020-09-28 2020-09-28 Outpatient Estevan [facility] [id number] Univers 08:30:00 08:30:00 ANJEL ity [facility] 2020-09-11 2020-09-11 Orders Doctor JACKI 1.2.840.114 [id number] Univers 00:00:00 00:00:00 Only Unassigned, SHANE [id number] ity of [facility] [id number] Andrew as [phone] [address] 2020-07-06 2020-07-06 [facility] [id number] Univers 10:00:00 10:00:00 ANJEL [id number] ity [facility] 2020-07-06 2020-07-06 [facility] [id number] Univers 10:00:00 10:00:00 [facility] 2020-06-29 2020-06-29 Outpatient [facility] [id number] Univers 09:00:00 09:00:00 ity [facility] 2020-06-29 2020-06-29 Outpatient R [facility] [id number] Univers 09:00:00 09:00:00 ity of [facility] 2020-06-13 2020-06-13 [facility] [id number] Univers 16:00:00 16:00:00 WONDIFUL [id number] ity o f [facility] 2020-06-13 2020-06-13 Outpatient R CELENA [facility] [id number] Univers 16:00:00 16:00:00 WONDIFUL ity o [facility] 2020-06-07 2020-06-07 Outpatient R CELENA [facility] [id number] Univers 15:00:00 15:00:00 WONDIFUL [id number] ity o f [facility] 2020-06-07 2020-06-07 Outpatient R CELENA [facility] [id number] Univers 15:00:00 15:00:00 WONDIFUL ity o [facility] 2020-05-23 2020-05-23 [facility] 1.2.840.114 [id number] Univers 00:00:00 00:00:00 Wondiful [facility] [id number] ity of [place] [id number] Andrew as Professio [phone] Fl dical nal [address] [place] [facility] 2020-03-30 2020-03-30 Outpatient R [facility] [id number] Univers 08:00:00 08:00:00 ity of [facility] 2020-03-30 2020-03-30 Outpatient R [facility] [id number] Univers 08:00:00 08:00:00 ity of [facility] 2020-03-29 2020-03-29 Outpatient R [facility] [id number] Univers 10:00:00 10:00:00 ity of [facility] 2020-03-29 2020-03-29 Outpatient R [facility] [id number] Univers 10:00:00 10:00:00 ity of [facility] 2020-03-29 2020-03-29 Nurse Nurse, [facility] 1.2.840.114 [id number] Univers 08:12:37 08:37:23 Visit Cecilia Dodge [id number] ity [id number] [phone] Fl dical nal 134 [facility] 2020-03-29 2020-03-29 Orders Doctor JACKI 1.2.840.114 [id number] Univers 00:00:00 00:00:00 Only Unassigned, SHANE [id number] ity of [place] [facility] [id number] Andrew as [phone] [address] 2020-01-25 2020-01-25 Outpatient R CELENA [facility] [id number] Univers 15:30:00 15:30:00 WONDIFUL [id number] ity o f [facility] 2020-01-25 2020-01-25 Office Celena [facility] 1.2.840.114 [id number] Univers 12:11:43 12:31:43 Visit Dominga Jackson [id number] ity of [id number] Profess[place] [phone] Fl dical nal 044 [facility] 2020-01-25 2020-01-25 Telemedici Celena [facility] 1.2.840.114 [id number] Univers 08:00:00 08:15:00 ne Visit Dominga Jackson [id number] ity of [id number] Profess[place] [phone] [facility] 044 [facility] 2020-01-25 2020-01-25 [facility] [id number] Univers 08:00:00 08:00:00 WONDIFUL ity o f [facility] 2019-12-29 2019-12-29 Nurse Nurse, [facility] 1.2.840.114 [id number] Univers 10:12:44 10:51:30 Visit Cecilia Dodge [id number] ity [id number] Profess[place] [phone] [facility] 134 [facility] 2019-12-29 2019-12-29 Outpatient R [facility] [id number] Univers 10:30:00 10:30:00 [id number] ity of [facility] 2019-12-29 2019-12-29 Outpatient R [facility] [id number] Univers 10:30:00 10:30:00 ity of [facility] 2019-10-27 2019-10-27 Orders Doctor JACKI 1.2.840.114 [id number] Univers 00:00:00 00:00:00 Only Unassigned, SHANE [id number] ity of [facility] [id number] Andrew as [phone] [address] 2019-10-26 2019-10-26 Telephone [facility] 1.2.840.114 [id number] Univers 00:00:00 00:00:00 Wondiful [facility] [id number] ity of [place] [id number] Andrew as Professio [phone] [facility] [address] [place] [address] One 2019-06-29 2019-06-29 Nurse Nurse, [facility] 1.2.840.114 [id number] Univers 15:34:50 16:38:48 Visit Cecilia Dodge [id number] [place] [id number] Carmelo dial Professio [phone] Fl dical nal 134 Branch Building Results This patient has no known results.
--- NOTE | 2022-01-03 13:24 | ER ---
Nurse's Notes [facility] Name: Maria Luisa Quinn Age: 26 yrs Sex: Female : 1995 Arrival Date: 01/03/2022 Time: 12:59 Bed 16 [facility] MD: Diagnosis: Cough Presentation: 01/03 13:06 Chief complaint: Patient states: "Yesterday i started coughing and this morning I ag7 started wheezing". Coronavirus screen: Client denies travel out of the [place] in the last 14 days. At this time, the client does not indicate any symptoms associated with coronavirus-19. Coronavirus screen: Client presents with at least one sign or symptom that may indicate coronavirus-19. Standard/surgical mask placed on the client. Provider contacted for isolation considerations. Ebola Screen: No symptoms or risks identified at this time. Initial Sepsis Screen: Does the patient meet any 2 criteria? No. Patient's initial sepsis screen is negative. Does the patient have a suspected source of infection? No. Patient's initial sepsis screen is negative. Risk Assessment: Do you want to hurt yourself or someone else? Patient reports no desire to harm self or others. Onset of symptoms was January 02, 2022. 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 Flu vaccine is not up to date. Patient has never been vaccinated. - Social history:: Smoking status: Patient reports the use of cigarette tobacco products, Patient denies any tobacco usage or history of. Screenin:28 Abuse screen: Denies threats or abuse. Nutritional screening: No deficits noted. lr4 Tuberculosis screening: No symptoms or risk factors identified. Fall Risk None identified. Assessment: 13:26 General: Appears in no apparent distress. comfortable, Behavior is calm, cooperative. lr4 Pain: Denies pain. Neuro: No deficits noted. Cardiovascular: No deficits noted. Respiratory: Reports cough that is non-productive, Airway is patent Respiratory effort is even, unlabored, Respiratory pattern is regular, Breath sounds are clear bilaterally. Vital Signs: 13:06 BP 138 / 89; Pulse 88; Resp 16 S; Temp 98.6(O); Pulse Ox 100% ; Weight 100.7 kg (R); ag7 Height 5 ft. 2 in. (157.48 cm) (R); Pain 0/10; 13:28 BP 130 / 84; Pulse 89; Resp 18; Pulse Ox 99% on R/A; lr4 13:06 Body Mass Index 40.60 (100.70 kg, 157.48 cm) ag7 ED Course: 12:59 Patient arrived in ED. mr 13:03 Layton Carr PA is PHCP. jr8 13:03 Kenneth Byrnes DO is Attending Physician. jr8 13:09 Triage completed. ag7 13:10 Arm band placed on right wrist. ag7 13:23 Blanca Baeza RN is Primary Nurse. lr4 13:28 Patient has correct armband on for positive identification. Bed in low position. Call lr4 light in reach. Side rails up X 1. 13:28 No provider procedures requiring assistance completed. lr4 13:35 Patient did not have IV access during this emergency room visit. lr4 Administered Medications: No medications were administered Outcome: 13:23 Discharge ordered by . jr8 13:31 Condition: stable lr4 13:35 Discharged to home ambulatory. lr4 13:35 Discharge instructions given to patient. 13:48 Patient left the ED. lr4 Signatures: Madison Cardozo mr Layton Carr PA PA jrBlanca Greene RN RN lr4 Tila Daniels RN RN 7
--- NOTE | 2022-01-03 13:24 | EDPHYS ---
Physician Documentation [facility] Name: Maria Luisa Quinn Age: 26 yrs Sex: Female : 1995 Arrival Date: 01/03/2022 Time: 12:59 Bed 16 Private MD: ED Physician Kenneth Byrnes HPI: 01/03 13:20 This 26 yrs old Female presents to ER via Ambulatory with complaints of Cough, jr8 Wheezing. 13:20 Onset: The symptoms/episode began/occurred suddenly, 2 day(s) ago. Severity of jr8 symptoms: At their worst the symptoms were mild, in the emergency department the symptoms are unchanged. Modifying factors: The symptoms are alleviated by nothing, the symptoms are aggravated by nothing. Associated signs and symptoms: Pertinent positives: wheezing . The patient has not experienced similar symptoms in the past. The patient has not recently seen a physician. Patient stated that she thought she has been having some allergies but today had increase in cough and wheezing . 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 Flu vaccine is not up to date. Patient has never been vaccinated. - Social history:: Smoking status: Patient reports the use of cigarette tobacco products, Patient denies any tobacco usage or history of. ROS: 13:20 Eyes: Negative for injury, pain, redness, and discharge, ENT: Negative for injury, jr8 pain, and discharge, Neck: Negative for injury, pain, and swelling, Cardiovascular: Negative for chest pain, palpitations, and edema, Abdomen/GI: Negative for abdominal pain, nausea, vomiting, diarrhea, and constipation, Back: Negative for injury and pain, MS/Extremity: Negative for injury and deformity, Skin: Negative for injury, rash, and discoloration, Neuro: Negative for headache, weakness, numbness, tingling, and seizure. 13:20 Respiratory: Positive for cough, wheezing, expiratory. Exam: 13:20 Constitutional: This is a well developed, well nourished patient who is awake, alert, jr8 and in no acute distress. ENT: Nares patent. No nasal discharge, no septal abnormalities noted. Tympanic membranes are normal and external auditory canals are clear. Oropharynx with no redness, swelling, or masses, exudates, or evidence of obstruction, uvula midline. Mucous membranes moist. Neck: Trachea midline, no thyromegaly or masses palpated, and no cervical lymphadenopathy. Supple, full range of motion without nuchal rigidity, or vertebral point tenderness. No Meningismus. Cardiovascular: Regular rate and rhythm with a normal S1 and S2. No gallops, murmurs, or rubs. Normal PMI, no JVD. No pulse deficits. Respiratory: Lungs have equal breath sounds bilaterally, clear to auscultation and percussion. No rales, rhonchi or wheezes noted. No increased work of breathing, no retractions or nasal flaring. Abdomen/GI: Soft, non-tender, with normal bowel sounds. No distension or tympany. No guarding or rebound. No evidence of tenderness throughout. Back: No spinal tenderness. No costovertebral tenderness. Full range of motion. Skin: Warm, dry with normal turgor. Normal color with no rashes, no lesions, and no evidence of cellulitis. MS/ Extremity: Pulses equal, no cyanosis. Neurovascular intact. Full, normal range of motion. Neuro: Awake and alert, GCS 15, oriented to person, place, time, and situation. Cranial nerves II-XII grossly intact. Motor strength 5/5 in all extremities. Sensory grossly intact. Vital Signs: 13:06 BP 138 / 89; Pulse 88; Resp 16 S; Temp 98.6(O); Pulse Ox 100% ; Weight 100.7 kg (R); ag7 Height 5 ft. 2 in. (157.48 cm) (R); Pain 0/10; 13:28 BP 130 / 84; Pulse 89; Resp 18; Pulse Ox 99% on R/A; lr4 13:06 Body Mass Index 40.60 (100.70 kg, 157.48 cm) ag7 MDM: 13:03 Patient medically screened. jr8 13:20 Data reviewed: vital signs, nurses notes, and as a result, I will discharge patient. jr8 Data interpreted: Pulse oximetry: on room air is 100 %. Interpretation: normal. Counseling: I had a detailed discussion with the patient and/or guardian regarding: the historical points, exam findings, and any diagnostic results supporting the discharge/admit diagnosis, the need for outpatient follow up, a family practitioner, to return to the emergency department if symptoms worsen or persist or if there are any questions or concerns that arise at home. Administered Medications: No medications were administered Disposition: 15:49 Co-signature as Attending Physician, Kenneth Byrnes DO I agree with the assessment and ms3 plan of care. Disposition Summary: 01/03/22 13:23 Discharge Ordered Location: Home jr8 Problem: new jr8 Symptoms: have improved jr8 Condition: Stable jr8 Diagnosis - Cough jr8 Followup: jr8 - With: Private Physician - When: 1 week - Reason: Recheck today's complaints, Continuance of care, Re-evaluation by your physician Discharge Instructions: - Discharge Summary Sheet jr8 - Allergies, Adult jr8 - Cough, Adult jr8 Forms: - Medication Reconciliation Form jr8 - Thank You Letter jr8 - Antibiotic Education jr8 - Prescription Opioid Use jr8 - Work release form lr4 Prescriptions: - promethazine-DM 6.25-15 mg/5 mL Oral syrup - take 5 milliliter by ORAL route every 6 hours As needed as needed; 120 jr8 milliliter; Refills: 0, Product Selection Permitted - Medrol (Leland) 4 mg Oral Tablets, Dose Pack - take 1 tablet by ORAL route as directed - follow package instructions; 1 jr8 packet; Refills: 0, Product Selection Permitted Signatures: Layton Carr PA PA jr8 Kenneth Byrnes DO DO ms3 Tila Daniels, RN RN ag7
[2022-01-03 13:57] VITALS: TEMP 98.6
[2022-01-03 13:58] VITALS: BP 130/84; O2SAT 99
== END 2022-01-03 13:48 | disposition home or self-care (01) ==
LOC: ER 12:57
DX: R05.9 Cough, unspecified (principal); R06.2 Wheezing; T78.40XA Allergy, unspecified, initial encounter
CPT/HCPCS: 99281

== ENCOUNTER 2022-02-22 01:07 | Emergency (ER) | payer SELFPAY ==
--- OUTSIDE RECORDS SUMMARY | 2022-02-22 01:10 | XMS REPORT | Continuity of Care Document ---
:1995 Author Organization [facility] Address [address] [place] [address] Care Team Providers Name Role Phone ISAACCULLEN Attending Clinician Unavailable Doctor Unassigned, Name Attending Clinician Unavailable CELENA, Steven Attending Clinician Unavailable Celena BRIGHT, Steven Attending Clinician Nurse, Women's [facility] Attending Clinician Unavailable Dar BRIGHT, Cam Attending Clinician Payers Payer Name Policy Type Policy Number Effective Date Expiration Date S shabbir ENTRUST [id number] 2019 00:00:00 Problems Condition Condition Condition Status Onset Resolution Last Treating Co mments Source Name Details Category Date Date Treatment Clinician Date Obesity Obesity Disease Active 2019- Univers (BMI (BMI 6-07 ity of 30-39.9) 30-39.9) 00:00: [address] Allergies, Adverse Reactions, Alerts Allergy Allergy Status Severity Reaction(s) Onset Inactive Treating Comm ents Source Name Type Date Date Clinician NO KNOWN Drug Active Univers ALLERGIE Class [facility] of [facility] [place] [facility] Social History Social Habit Start Date Stop Date Quantity Comments Source History [facility] University o f Alcohol Std [place] [facility] Dr[facility] History [facility] University o f Alcohol Binge [place] [facility] Sex Assigned At [facility] [place] [facility] [place] Exposure to Not sure University of SARS-CoV-2 [place] [facility] (event) [facility] Alcohol intake 2020-01-25 2020-01-25 Current drinker Unive rsity of 00:00:00 00:00:00 of alcohol [place] [facility] (finding) [facility] Tobacco use and 2020-01-25 2020-01-25 Never used Universit y of exposure 00:00:00 00:00:00 [place] [facility] History SDOH 2019-03-27 2019-03-27 2 University o f Alcohol Frequency 00:00:00 00:00:00 [facility] edical Branch Smoking Status Start Date Stop Date Source Never smoker [facility] Medications Ordered Filled Start [...] 12/29/19 at 1200, Routine QSYMIA 2020-0 Yes [id number] 1{capsu Take 1 U nivers 7.5-46 mg 1-09 le} capsule by ity of per capsule 00:00: mouth 00 daily. Medical Branch QSYMIA 2020-0 Yes [id number] 1{capsu Take 1 U nivers 7.5-46 mg 1-09 le} capsule by ity of per capsule 00:00: mouth [place] 00 daily. Medical Branch QSYMIA 2020-0 Yes [id number] 1{capsu Take 1 U nivers 7.5-46 mg 1-09 le} capsule by ity of per capsule 00:00: mouth [place] 00 daily. Medical Branch QSYMIA 2020-0 Yes [id number] 1{capsu Take 1 U nivers 7.5-46 mg 1-09 le} capsule by ity of per capsule 00:00: mouth [place] 00 daily. Medical Branch QSYMIA 2020-0 Yes [id number] 1{capsu Take 1 U nivers 7.5-46 mg 1-09 le} capsule by ity of per capsule 00:00: mouth [place] 00 daily. Medical Branch QSYMIA 2019-0 Yes [id number] 1{capsu Take 1 U nivers 7.5-46 mg 1-09 le} capsule by ity of per capsule 00:00: mouth [place] 00 daily. Medical Branch QSYMIA 2019-0 Yes [id number] 1{capsu Take 1 U nivers 7.5-46 mg 1-09 le} capsule by ity of per capsule 00:00: mouth [place] 00 daily. Medical Branch QSYMIA 2019-0 Yes [id number] 1{capsu Take 1 U nivers 7.5-46 mg 1-09 le} capsule by ity of per capsule 00:00: mouth [place] 00 daily. Medical Branch QSYMIA 2019-0 Yes [id number] 1{capsu Take 1 U nivers 7.5-46 mg 1-09 le} capsule by ity of per capsule 00:00: mouth [place] 00 daily. Medical Branch QSYMIA 2019-0 Yes [id number] 1{capsu Take 1 U nivers 7.5-46 mg 1-09 le} capsule by ity of per capsule 00:00: mouth [place] 00 daily. Medical Branch QSYMIA 2019-0 2020- No [id number] 1{capsu Take 1 Univers 3.75-23 mg 10-2924 le} capsule by it y of per capsule 00:00[place] 05[place] daily for Medical 14 days. Branch QSYMIA 2019-0 2020- No [id number] 1{capsu Take 1 Univers 3.75-23 mg 10-2924 le} capsule by it y of per capsule 00:00[place] 05[place] daily for Medical 14 days. Branch QSYMIA 2019-0 2020- No [id number] 1{capsu Take 1 Univers 3.75-23 mg 10-26-09 [...] Rich PA-C / Kenneth Baez MD TRENA# [id number] DPS# [id number] x Lic.# [id number] NPI# [id number] cyclobenzap 2017-0 Yes 5mg Take 1 Univ [...] Rich PA-C / Kenneth Baez MD TRENA# [id number] DPS# [id number] x Lic.# [id number] [facility]# [id number] cyclobenzap 2017-0 Yes 5mg Take 1 Univ [...] Systolic blood 2020-03-29 13:29:00 116 mm[Hg] [facility] 2020-03-29 13:29:00 79 [facility]Hg[facility] 2020-03-29 13:29:00 58 /min [facility] Body temperature 2020-03-29 13:29:00 36.78 Lucy [facility] Respiratory rate 2020-03-29 13:29:00 18 /min [facility] Body height 2020-03-29 13:29:00 157.5 cm [facility] Body weight 2020-03-29 13:29:00 88.905 kg [facility] BMI 2020-03-29 13:29:00 35.85 kg/m2 [facility] Systolic blood 2019-12-29 15:50:00 131 mm[Hg] [facility] Diastolic blood 2019-12-29 15:50:00 86 mm[Hg] [facility] 2019-12-29 15:50:00 63 /min Universi ty of [facility] Body temperature 2019-12-29 15:50:00 36.78 Lucy Univ ersity of [facility] Respiratory rate 2019-12-29 15:50:00 18 /min Univ ersity of [facility] Body weight 2019-12-29 15:50:00 95.709 kg Universi ty [facility] BMI 2019-12-29 15:50:00 37.38 kg/m2 Universi ty [facility] Systolic blood 2019-06-29 21:38:00 125 mm[Hg] Univer sity of pressure [facility] Diastolic blood 2019-06-29 21:38:00 74 mm[Hg] Unive rsity of pressure [facility] Systolic blood 2019-06-29 21:25:00 141 mm[Hg] Univer sity of pressure [facility] Diastolic blood 2019-06-29 21:25:00 91 mm[Hg] Unive rsity of pressure [facility] Heart rate 2019-06-29 21:25:00 68 /min Universi ty [facility] Body temperature 2019-06-29 21:25:00 36.78 Lucy Univ ersity of [facility] Respiratory rate 2019-06-29 21:25:00 18 /[facility] 2019-06-29 21:25:00 160 cm Universi ty [facility] Body weight 2019-06-29 21:25:00 100.699 kg Universi ty [facility] BMI 2019-06-29 21:25:00 39.33 kg/m2 [facility] Procedures Procedure Date / Time Performing Clinician Source Performed AUTHORIZATION FOR RELEASE 2020-09-11 06:01:00 Doctor Unassigned, [facility] ASSIGNMENT OF BENEFITS 2020-03-29 13:11:23 Doctor Vanessa [facility] Name Medical Branch MEDICATION CORRESPONDENCE 2019-10-27 06:01:00 Doctor Vanessa, [facility] Encounters Start End Encounter Admission Attending Care Care Encounter Source Date/Time Date/Time Type Type Clinicians Facility Department ID 2020-09-28 2020-09-28 Outpatient Estevan [facility] [id number] Univers 08:30:00 08:30:00 ANJEL ity [facility] 2020-09-11 2020-09-11 Orders Doctor JACKI 1.2.840.114 [id number] Univers 00:00:00 00:00:00 Only Unassigned, SHANE [id number] ity of [facility] [id number] Andrew as [phone] [address] 2020-07-06 2020-07-06 [facility] [id number] Univers 10:00:00 10:00:00 ANJEL [id number] ity [facility] 2020-07-06 2020-07-06 [facility] [id number] Univers 10:00:00 10:00:[facility] 2020-06-[facility] 2020-06-29 [facility] [id number] Univers 09:00:00 09:00:00 ity [facility] 2020-06-29 2020-06-29 [facility]patient [facility] [id number] Univers 09:00:00 09:00:00 ity of [facility] 2020-06-13 2020-06-13 [facility] [id number] Univers 16:00:00 16:00:00 WONDIFUL [id number] ity o f [facility] 2020-06-13 2020-06-13 Outpatient R [facility]LENA [facility] [id number] Univers 16:00:00 16:00:00 WONDIFUL ity o [facility] 2020-06-07 2020-06-07 Outpatient R CELENA [facility] [id number] Univers 15:00:00 15:00:00 WONDIFUL [id number] ity o f [facility] 2020-06-07 2020-06-07 Outpatient R CELENA [facility] [id number] Univers 15:00:00 15:00:00 WONDIFUL ity o [facility] 2020-05-23 2020-05-23 [facility] [id number] Univers 00:00:00 00:00:00 Wondiful [facility] [id number] ity of [place] [id number] Andrew as Professio [phone] Al dical nal [address] [place] [address] [facility] One 2020-03-30 2020-03-30 Outpatient [facility] [id number] Univers 08:00:00 08:00:00 ity of [facility] 2020-03-30 2020-03-30 Outpatient [facility] [id number] Univers 08:00:00 08:00:00 ity of [facility] 2020-03-29 2020-03-29 Outpatient [facility] [id number] Univers 10:00:00 10:00:00 ity of [facility] 2020-03-29 2020-03-29 Outpatient [facility] [id number] Univers 10:00:00 10:00:00 ity of [facility] 2020-03-29 2020-03-29 Nurse Nurse, [facility] 1.2.840.114 [id number] Univers 08:12:37 08:37:23 Visit Cecilia Dodge [id number] [id number] [phone] Al dical nal 134 [facility] 2020-03-29 2020-03-29 Orders Doctor JACKI 1.2.840.114 [id number] Univers 00:00:00 00:00:00 Only Unassigned, SHANE [id number] ity of [facility] [id number] Andrew as [phone] [address] 2020-01-25 2020-01-25 Outpatient R CELENA [facility] [id number] Univers 15:30:00 15:30:00 WONDIFUL [id number] ity o f [facility] 2020-01-25 2020-01-25 Office Celena [facility] 1.2.840.114 [id number] Univers 12:11:43 12:31:43 Visit Dominga Jackson [id number] [id number] Profess[place] [phone] Al dical nal 044 [facility] 2020-01-25 2020-01-25 Telemedici Celena [facility] 1.2.840.114 [id number] Univers 08:00:00 08:15:00 ne Visit Dominga Jackson [id number] [id number] Profess[place] [phone] [facility] 044 [facility] 2020-01-25 2020-01-25 [facility] [id number] Univers 08:00:00 08:00:00 WONDIFUL ity o f [facility] 2019-12-29 2019-12-29 Nurse Nurse, [facility] 1.2.840.114 [id number] Univers 10:12:44 10:51:30 Visit Cecilia Dodge [id number] [id number] Profess[place] [phone] [facility] 134 [facility] 2019-12-29 2019-12-29 Outpatient [facility] [id number] Univers 10:30:00 10:30:00 [id number] ity of [facility] 2019-12-29 2019-12-29 Outpatient [facility] [id number] Univers 10:30:00 10:30:00 ity of [facility] 2019-10-27 2019-10-27 Orders Doctor JACKI 1.2.840.114 [id number] Univers 00:00:00 00:00:00 Only Unassigned, SHANE [id number] ity of [facility] [id number] Andrew as [phone] [address] 2019-10-26 2019-10-26 Telephone [facility] 1.2.840.114 [id number] Univers 00:00:00 00:00:00 Wondiful [facility] [id number] ity of [place] [id number] Andrew as Professio [phone] [facility] [address] [place] [address] Building One 2019-06-29 2019-06-29 Nurse Nurse, [facility] 1.2.840.114 [id number] Univers 15:34:50 16:38:48 Visit Cecilia Dodge [id number] [place] [id number] Carmelo dial Professio [phone] Al dical nal [address] Branch Building Results This patient has no known results.
--- NOTE | 2022-02-22 01:32 | ER ---
Nurse's Notes [facility] Name: Maria Luisa Quinn Age: 26 yrs Sex: Female : 1995 Arrival Date: 02/22/2022 Time: 01:11 Bed 18 Private MD: Diagnosis: Nasal congestion;Other acute nonsuppurative otitis media, right ear Presentation: 02/22 01:22 Chief complaint: Patient states: Right ear pain. Coronavirus screen: Vaccine status: homero Patient reports receiving the 2nd dose of the covid vaccine. Ebola Screen: Patient negative for fever greater than or equal to 101.5 degrees Fahrenheit, and additional compatible Ebola Virus Disease symptoms Patient denies exposure to infectious person. Patient denies travel to an Ebola-affected area in the 21 days before illness onset. Initial Sepsis Screen: Does the patient meet any 2 criteria? No. Patient's initial sepsis screen is negative. Does the patient have a suspected source of infection? No. Patient's initial sepsis screen is negative. Risk Assessment: Do you want to hurt yourself or someone else? Patient reports no desire to harm self or others. Onset of symptoms was February 22, 2022 at 00:00. 01:22 Method Of Arrival: Ambulatory homero 01:22 Acuity: HOLLY 4 homero Triage Assessment: 01:24 General: Appears in no apparent distress. Behavior is calm, cooperative. Pain: homero Complains of pain in right ear. 01:27 EENT: No deficits noted. 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 - Social history:: Smoking status: Patient denies any tobacco usage or history of. Screenin:24 Abuse screen: Denies threats or abuse. Denies injuries from another. Nutritional homero screening: No deficits noted. Tuberculosis screening: No symptoms or risk factors identified. Fall Risk None identified. Assessment: 01:24 Reassessment: The pt is c/o right ear pain since mn. She now states she has "cough and homero congestion". The pt's ear canal is not inflamed. Vital Signs: 01:24 BP 154 / 89; Pulse 78; Resp 18; Temp 98.4; Pulse Ox 100% on R/A; Pain 10/10; homero ED Course: 01:11 Patient arrived in ED. bp1 01:15 Lizbeth Doss, RN is Primary Nurse. homero 01:15 Bola Jenkins MD is Attending Physician. kdr 01:23 Triage completed. homero 01:24 Arm band placed on. homero 01:26 No provider procedures requiring assistance completed. homero 01:27 Bed in low position. Call light in reach. homero 02:01 Patient did not have IV access during this emergency room visit. homero Administered Medications: 01:34 Drug: Motrin (ibuprofen) 800 mg Route: PO; homero 01:35 Follow up: Response: No adverse reaction homero 01:35 CANCELLED ( orderr): Pseudoephedrine 60 mg PO once homero Outcome: 01:26 Condition: stable homero 01:31 Discharge ordered by . kdr 02:01 Discharge instructions given to patient, Instructed on discharge instructions, follow homero up and referral plans. medication usage, Demonstrated understanding of instructions, follow-up care, medications, Prescriptions given X 2. 02:01 Discharged to home ambulatory. homero 02:01 Patient left the ED. homero Signatures: Bola Jenkins MD MD kdr Ania Vasquez bp1 Lizbeth Doss, RN RN homero
--- NOTE | 2022-02-22 01:32 | EDPHYS ---
Physician Documentation [facility] Name: Maria Luisa Quinn Age: 26 yrs Sex: Female : 1995 Arrival Date: 02/22/2022 Time: 01:11 Bed 18 Private MD: ED Physician Bola Jenkins HPI: 02/22 02:50 This 26 yrs old Female presents to ER via Ambulatory with complaints of Ear kdr Pain. 02:50 The patient presents with a fullness, pain, mild. The complaints affect the right ear. kdr Onset: The symptoms/episode began/occurred suddenly, today. Modifying factors: The symptoms are alleviated by nothing, the symptoms are aggravated by nothing. Associated signs and symptoms: Pertinent positives: sore throat. Severity of symptoms: At their worst the symptoms were very mild in the emergency department the symptoms are unchanged. The patient has not experienced similar symptoms in the past. The patient has not recently seen a physician. 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 - Social history:: Smoking status: Patient denies any tobacco usage or history of. ROS: 02:50 Constitutional: Negative for fever, chills, and weight loss, Eyes: Negative for injury, kdr pain, redness, and discharge, Neck: Negative for injury, pain, and swelling, Cardiovascular: Negative for chest pain, palpitations, and edema, Respiratory: Negative for shortness of breath, cough, wheezing, and pleuritic chest pain. 02:50 ENT: Positive for ear pain, nasal discharge, sore throat. Exam: 02:50 Constitutional: This is a well developed, well nourished patient who is awake, alert, kdr and in no acute distress. Head/Face: Normocephalic, atraumatic. Eyes: Pupils equal round and reactive to light, extra-ocular motions intact. Lids and lashes normal. Conjunctiva and sclera are non-icteric and not injected. Cornea within normal limits. Periorbital areas with no swelling, redness, or edema. Neck: Trachea midline, no thyromegaly or masses palpated, and no cervical lymphadenopathy. Supple, full range of motion without nuchal rigidity, or vertebral point tenderness. No Meningismus. Chest/axilla: Normal chest wall appearance and motion. Nontender with no deformity. No lesions are appreciated. 02:50 ENT: External ear(s): are unremarkable, Ear canal(s): swelling, that is minimal, of the right canal, TM's: dullness, on the right. Vital Signs: 01:24 BP 154 / 89; Pulse 78; Resp 18; Temp 98.4; Pulse Ox 100% on R/A; Pain 10/10; homero MDM: 01:31 Patient medically screened. kdr 02:50 Data reviewed: vital signs, nurses notes. Counseling: I had a detailed discussion with kdr the patient and/or guardian regarding: the historical points, exam findings, and any diagnostic results supporting the discharge/admit diagnosis, the need for outpatient follow up. ED course: Patient was stable and nonacute in the ED. She did not appear toxic in any way. The swelling in the right ear canal was very minimal at best. The TM on that side appeared to have had a history of recurrent infections. There was no acute aspect to the exam. Patient had a prior tonsillectomy and so there was no tonsillar pillar swelling. There is minimal lymphadenopathy periauricular on the right side as well. Overall this patient's symptoms were very minimal. Administered Medications: 01:34 Drug: Motrin (ibuprofen) 800 mg Route: PO; homero 01:35 Follow up: Response: No adverse reaction homero 01:35 CANCELLED ( orderr): Pseudoephedrine 60 mg PO once homero Disposition Summary: 02/22/22 01:31 Discharge Ordered Location: Home kdr Problem: new kdr Symptoms: have improved kdr Condition: Stable kdr Diagnosis - Nasal congestion kdr - Other acute nonsuppurative otitis media, right ear kdr Followup: kdr - With: Private Physician - When: 1 - 2 days - Reason: If symptoms return, Further diagnostic work-up, Recheck today's complaints, Continuance of care, Re-evaluation by your physician Discharge Instructions: - Discharge Summary Sheet kdr - Otitis Media, Adult kdr - Viral Respiratory Infection kdr - Viral Illness, Adult kdr - Form - Excuse from Work, School, or Physical Activity homero Forms: - Medication Reconciliation Form kdr - Thank You Letter kdr - Work release form homero Prescriptions: - pseudoephedrine HCl 60 mg Oral tablet - take 1 tablet by ORAL route every 6 hours As needed; 20 tablet; Refills: 0, kdr Product Selection Permitted - Ibuprofen 600 mg Oral Tablet - take 1 tablet by ORAL route every 6 hours As needed take with food; 15 tablet; kdr Refills: 0, Product Selection Permitted Signatures: Bola Jenkins MD MD kdr O'Farrell, Brenda, RN RN bo Corrections: (The following items were deleted from the chart) 01:35 01:28 Pseudoephedrine 60 mg PO once ordered. kdr homero
[2022-02-22] MEDS ORDERED: IBUPROFEN 400 MG TAB ONE (01:36)
[2022-02-22 02:08] VITALS: BP 154/89; TEMP 98.4; O2SAT 100
== END 2022-02-22 02:01 | disposition home or self-care (01) ==
LOC: ER 01:07
DX: H65.191 Other acute nonsuppurative otitis media, right ear (principal); R09.81 Nasal congestion
CPT/HCPCS: 99283